=== PATIENT | male | born 1960 | race African-American/Black ===

== ENCOUNTER 2024-03-11 13:41 | Inpatient (IN) | payer OTHER ==
[2024-03-11] MEDS ORDERED: cloNIDine HCL 0.1 MG TAB ONE (14:41)
[2024-03-11 14:53] LABS: PT Prothrombin Time 11.5 SECONDS (9.4-12.5); Protime INR 1.03
[2024-03-11 15:04] LABS: Absolute Basophils 0.1 K/uL (0-0.5); Absolute Eosinophils 0.3 K/uL (0-0.5); Absolute Lymphocytes (CBC) 2.2 K/uL (0.7-4.9); Absolute Monocytes 0.6 K/uL (0.1-1.3); Absolute Neutrophil 2.5 K/uL (1.8-8.0); Basophils % 0.9 % (0-1.3); Hematocrit 44.3 % (39.6-49.0); Hemoglobin 14.4 g/dL (13.6-17.9); Lymphocytes % 38.8 % (15.3-44.8); MCH 29.5 pg (27.0-35.0); MCHC 32.5 g/dL (32.0-36.0); MCV 90.9 fL (80-100); MPV 8.2 fL (7.6-11.3); Monocytes % 11.3 % (3.3-12.3); Nucleated Red Blood Cells % 0.1 % (0-0); Platelets 188 thou/uL (152-406); RBC Red Blood Cell Count 4.87 M/uL (4.33-5.43); Red Cell Distribution Width 13.6 % (12.1-15.2)
--- NOTE | 2024-03-11 15:06 | RAD REPORT ---
EXAMINATION: ONE VIEW CHEST XR CLINICAL INDICATION: CHEST PAIN TECHNIQUE: Frontal chest projection is submitted. Examination is limited by patient positioning and t echnique. COMPARISON: No prior exam. FINDINGS: Ckhf-[id number] pulmonary edema is seen. Heart is moderately enlarged in size. No displaced fracture s identified. IMPRESSION: [id number] CHF suspected.
[2024-03-11 15:10] LABS: Troponin High Sensitivity 37.6 pg/mL (<58.9)
--- NOTE | 2024-03-11 16:17 | RAD REPORT ---
EXAMINATION: CTA CHEST CLINICAL INDICATION: CHEst pain, BP 174/123 TECHNIQUE: This examination was performed according to an angiographic protocol with 3D post-processi ng. This involves 3D reconstructions, MIPs, volume rendered images and/or shaded surface rendering. One or more of the following dose reduction techniques were used: Automated exposure control, adjustm ent of the mA and/or kV according to patient size, and/or iterative reconstruction. Unless otherwise specified, incidental findings do not require dedicated imaging follow-up. COMPARISON: No prior exam. FINDINGS: THORACIC AORTA: Normal caliber and configuration. PULMONARY ARTERIES: Normal caliber. No evidence of pulmonary emboli to the subsegmental level. LUNGS: No evidence of airspace or interstitial process. No nodules. PLEURA: No pleural effusion. No pneumothorax. MEDIASTINUM AND LYMPH NODES: No mediastinal mass or fluid collection. Normal size mediastinal, hilar, and axillary lymph nodes. OSSEOUS STRUCTURES AND CHEST WALL: Intact. UPPER ABDOMEN: Fatty liver. IMPRESSION: Unremarkable CTA of the chest.
--- NOTE | 2024-03-11 16:19 | RAD REPORT ---
EXAM: CTA of the abdomen and pelvis HISTORY: Chest pain and back pain pain COMPARISON: None TECHNIQUE: Multiple contiguous axial images were obtained a CTA of the abdomen and pelvis with contra st per angiographic protocol. This involves 3D reconstructions, MIPs, volume rendered images and/or shaded surface rendering. One or more of the following dose reduction techniques were used: Automated exposure control, adjustment of the mA and/or kV according to patient size, and/or iterative reconstruction. Unless otherwise specified, incidental findings do not require dedicated imaging foll ow-up. Sagittal and coronal 3-D MIP reformats were performed. FINDINGS: DESCENDING THORACIC AORTA: Included infeior aspect demonstrates normal caliber without evidence of d issection or aneurysmal dilatation. ABDOMINAL AORTA: Normal caliber without evidence of dissection or aneurysmal dilatation. Mild infrare nal atherosclerosis. CELIAC TRUNK: Patent. SMA: Patent SOPHIA: Patent RENAL ARTERIES: Bilateral single renal arteries without significant atherosclerotic disease. LIVER: Fatty liver infiltration noted. SPLEEN: Unremarkable. PANCREAS: Unremarkable. KIDNEYS: Unremarkable. ADRENALS: Unremarkable. BOWEL: Unremarkable. Normal appendix. RETROPERITONEUM: No lymphadenopathy. BONES: Mild lumbar degenerative changes. ADDITIONAL FINDINGS: IMPRESSION: No significant flow abnormality is detected.
--- NOTE | 2024-03-11 16:20 | RAD REPORT ---
EXAMINATION:Upper Ext Artery Uni Venkatesh CLINICAL INDICATION: Male, 63 years old. PAIN RIGHT TECHNIQUE: Arterial duplex ultrasound was performed of the right upper extremity with real-time, colo r-flow, and spectral wave Doppler evaluation. COMPARISON: No prior exam. FINDINGS: No plaque throughout the evaluated arterial system. Triphasic waveforms are seen throughout the evaluated right upper extremity arterial system. No signi ficant flow abnormality seen.. No other suspicious findings. IMPRESSION: No significant flow abnormality seen.
--- NOTE | 2024-03-11 16:21 | RAD REPORT ---
EXAMINATION: US RIGHT UPPER EXTREMITY VENOUS DOPPLER CLINICAL INDICATION: right arm pain RIGHT TECHNIQUE: Complete bilateral duplex sonography of the RIGHT upper extremity veins was performed. The examination included compression for vein patency, color Doppler imaging and flow augmentation in response to distal compression of the internal jugular, brachiocephalic, subclavian, axillary, brachi al, radial, ulnar, cephalic and basilic veins. COMPARISON: No prior exam. FINDINGS: Duplex sonography testing of the veins of the RIGHT upper extremity was performed. Color flow imaging shows all veins to be compressible with [id number] color filling. Pulsatile and phasic flow is present within all upper extremity deep and superficial veins examined. IMPRESSION: There is no deep vein or superficial vein thrombosis.
--- NOTE | 2024-03-11 16:38 | EDPHYS ---
Physician Documentation [facility] Name: Rony Gardner Age: 63 yrs Sex: Male : 1960 Arrival Date: 03/11/2024 Time: 13:41 Bed 6 Private MD: ED Physician Jarrod Parsons HPI: 03/11 14:26 This 63 yrs old Black Male presents to ER via EMS with complaints of High Blood rn Pressure. 14:26 The patient has elevated blood pressure and discovered this at home. Onset: The rn symptoms/episode began/occurred at an unknown time. Modifying factors:. Associated signs and symptoms: Pertinent positives: chest pain, Pertinent negatives: dizziness, headache. Severity of symptoms: At its worst the blood pressure was moderate, in the emergency department the blood pressure is unchanged. The patient has experienced similar episodes in the past. The patient has been recently seen by a physician:. Patient reports seen at [facility] emergency room today for chest pain and high blood pressure. States workup was negative and has results with him. Patient states was discharged after negative cardiac workup and followed up with primary care physician. PCP noted high blood pressure and told him to come to [place] emergency room for evaluation. Patient reports intermittent chest pain that radiates to both arms and back. States compliant with blood pressure medication and no recent changes. No abdominal pain. No focal neurological deficit.. Historical: - Allergies: 13:53 No Known Allergies; ss - Immunization history:: Adult Immunizations up to date. - Infectious Disease History:: Denies. - Family history:: not pertinent. - Hospitalizations: : No recent hospitalization is reported. - Social history:: Smoking status: Patient denies any tobacco usage or history of. ROS: 14:28 Constitutional: Negative for fever, chills, and weight loss, Cardiovascular: Positive rn for chest pain Respiratory: Negative for shortness of breath, cough, wheezing, and pleuritic chest pain, Abdomen/GI: Negative for abdominal pain, nausea, vomiting, diarrhea, and constipation, Back: Positive for mid back pain MS/Extremity: Positive for right arm pain Skin: Negative for injury, rash, and discoloration, Neuro: Negative for headache, weakness, numbness, tingling, and seizure, Exam: 14:28 Constitutional: This is a well developed, well nourished patient who is awake, alert, rn and in no acute distress. Head/Face: Normocephalic, atraumatic. Cardiovascular: Regular rate and rhythm. No pulse deficits. Respiratory: No increased work of breathing, no retractions or nasal flaring. Abdomen/GI: Soft, non-tender MS/ Extremity: No cyanosis. Right radial pulse slightly weaker compared to left radial pulse. No discoloration. Neuro: Awake and alert, GCS 15, oriented to person, place, time, and situation. 14:46 ECG was reviewed by the Attending Physician. rn Vital Signs: 13:52 BP 174 / 123; Pulse 64; Resp 18; Temp 97.8(TE); Pulse Ox 97% on R/A; Weight 181.44 kg; ss Height 6 ft. 2 in. ; 16:37 BP 154 / 99; Pulse 54; Pulse Ox 99% on R/A; ap3 17:48 BP 183 / 113; Pulse 51; Resp 17; Pulse Ox 99% ; bp 18:35 BP 171 / 68; Pulse 68; Resp 19; Pulse Ox 94% on R/A; bp 19:30 BP 134 / 68; Pulse 64; Resp 18; Pulse Ox 96% ; cp4 13:52 Body Mass Index 51.36 (181.44 kg, 187.96 cm) ss MDM: 13:49 Medical Screening Exam initiated rn 16:36 Differential diagnosis: hypertensive crisis, Malignant HTN, CHF, pulmonary edema. rn 16:36 Data reviewed: vital signs, nurses notes, lab test result(s), EKG, radiologic studies, rn plain films, and as a result, I will admit patient. Consideration of Admission/Observation Patient was admitted/placed on observation. Escalation of care including admission/observation considered. Counseling: I had a detailed discussion with the patient and/or guardian regarding the historical points, exam findings, and any diagnostic results supporting the discharge/admit diagnosis, lab results, radiology results, the need for further work-up and treatment in the hospital. Response to treatment: the patient's symptoms have mildly improved after treatment, and as a result, I will admit patient. 03/11 13:58 Order name: Basic Metabolic Panel; Complete Time: 15:42 rn 03/11 13:58 Order name: CBC with Diff; Complete Time: 15:42 rn 03/11 13:58 Order name: NT PRO-BNP; Complete Time: 15:42 rn 03/11 13:58 Order name: PT-INR; Complete Time: 15:42 rn 03/11 13:58 Order name: Troponin HS; Complete Time: 15:42 rn 03/11 17:01 Order name: Troponin High Sensitivity EDMS 03/11 17:26 Order name: Urinalysis w/ reflexes EDMS 03/11 17:28 Order name: Basic Metabolic Panel EDMS 03/11 17:28 Order name: Basic Metabolic Panel EDMS 03/11 17:28 Order name: Basic Metabolic Panel EDMS 03/11 17:28 Order name: CBC with Automated Diff EDMS 03/11 17:28 Order name: CBC with Automated Diff EDMS 03/11 17:28 Order name: CBC with Automated Diff EDMS 03/11 17:28 Order name: Lipid Profile EDMS 03/11 17:28 Order name: Lipid Profile EDMS 03/11 17:28 Order name: Magnesium EDMS 03/11 17:28 Order name: Magnesium EDMS 03/11 17:28 Order name: Magnesium EDMS 03/11 17:28 Order name: NT PRO-BNP EDMS 03/11 17:28 Order name: NT PRO-BNP EDMS 03/11 17:28 Order name: Troponin High Sensitivity EDMS 03/11 17:28 Order name: Troponin High Sensitivity EDMS 03/11 13:58 Order name: XRAY Chest (1 view); Complete Time: 15:42 rn 03/11 15:15 Order name: Upper Ext Artery Uni Venkatesh; Complete Time: 16:22 EDMS 03/11 15:16 Order name: UPPER EXTREMITY VENOUS UNILATE; Complete Time: 16:22 EDMS 03/11 15:49 Order name: Abdomen Angio; Complete Time: 16:22 EDMS 03/11 15:50 Order name: Chest Angio; Complete Time: 16:22 EDMS 03/11 17:29 Order name: Rest Stress Cardiac Imaging EDMS 03/11 17:34 Order name: Echo with Doppler EDMS 03/11 17:34 Order name: Echo with Doppler EDMS 03/11 13:58 Order name: EKG; Complete Time: 13:58 rn 03/11 17:24 Order name: CONS Physician Consult EDMS 03/11 17:28 Order name: EKG Electrocardiogram EDMS 03/11 17:28 Order name: EKG Electrocardiogram EDMS 03/11 17:28 Order name: EKG Electrocardiogram EDMS 03/11 13:58 Order name: Cardiac monitoring; Complete Time: 14:44 rn 03/11 13:58 Order name: EKG - Nurse/Tech; Complete Time: 14:46 rn 03/11 13:58 Order name: IV Saline Lock; Complete Time: 14:43 rn 03/11 13:58 Order name: Labs collected and sent; Complete Time: 14:43 rn 03/11 13:58 Order name: O2 Per Protocol; Complete Time: 14:43 rn 03/11 13:58 Order name: O2 Sat Monitoring; Complete Time: 14:43 rn EC:46 Rate is 59 beats/min. Rhythm is regular. QRS [place] is Normal. ME interval is normal. QRS rn interval is normal. QT interval is normal. No Q waves. T waves are Inverted in leads II, III, aVF, V5, V6. No ST changes noted. Clinical impression: Sinus bradycardia. Interpreted by me. Reviewed by me. Administered Medications: 14:44 Drug: cloNIDine PO 0.2 mg PO once Route: PO; bp 16:58 Follow up: Response: No adverse reaction bp 16:57 Drug: Furosemide IVP 40 mg IVP once; give over 2 minutes Route: IVP; Site: left bp antecubital; 18:36 Follow up: Response: No adverse reaction bp Disposition Summary: 03/11/24 16:38 Hospitalization Ordered Notes: Hospitalization Status: Inpatient Admission rn Provider: Adolfo Silveira rn Location: Telemetry/MedSurg (Inpatient) rn Condition: Stable rn Problem: new rn Symptoms: have improved rn Bed/Room Type: Standard rn Room Assignment: 402(03/11/24 18:25) em1 Diagnosis - Malignant Hypertension rn - Chest pain, unspecified rn - Acute pulmonary edema rn Forms: - Medication Reconciliation Form rn - SBAR form rn - Leadership Thank You Letter rn Signatures: Dispatcher [employer] EDMS Jarrod Parsons MD MD rn Martinez, Eric em1 Yesenia Elena RN RN Samuel Coleman RN RN Minoo Medley cp4 Corrections: (The following items were deleted from the chart) 13:58 13:58 BASIC METABOLIC PANEL+C.LAB.BRZ ordered. EDMS EDMS 13:58 13:58 CBC+H.LAB.BRZ ordered. EDMS EDMS 13:58 13:58 PROBNP+C.LAB.BRZ ordered. EDMS EDMS 13:58 13:58 PROTIME (+INR)+COAG.LAB.BRZ ordered. EDMS EDMS 13:58 13:58 Troponin High Sensitivity+C.LAB.BRZ ordered. EDMS EDMS 13:59 13:59 Angio Aorta For Dissection+CT.RAD.BRZ ordered. EDMS EDMS 14:28 14:28 Extremity Venous Uni Ltd+US.RAD.BRZ ordered. EDMS EDMS 14:28 14:28 Lower Extremity Artery Uni Ltd+US.RAD.BRZ ordered. EDMS EDMS 18:25 16:38 rn em1
--- NOTE | 2024-03-11 16:38 | ER ---
Nurse's Notes [facility] Name: Rony Gardner Age: 63 yrs Sex: Male : 1960 Arrival Date: 03/11/2024 Time: 13:41 Bed 6 Private MD: Diagnosis: Malignant Hypertension;Chest pain, unspecified;Acute pulmonary edema Presentation: 03/11 13:54 Chief complaint: Patient states: he is having right upper chest pain that started ap3 yesterday and is also on the right upper back.. patient rates his pain as a 9/10. patient was evaluated at another facility this morning and reports being discharged and followed up with primary care dr. Coronavirus screen: At this time, the client does not indicate any symptoms associated with coronavirus-19. Ebola Screen: No symptoms or risks identified at this time. Initial Sepsis Screen: Does the patient meet any 2 criteria?. Initial Sepsis Screen: Does the patient have a suspected source of infection? No. Patient's initial sepsis screen is negative. Risk Assessment: Do you want to hurt yourself or someone else? Patient reports no desire to harm self or others. Onset of symptoms was March 10, 2023. 13:54 Method Of Arrival: EMS: [facility] ap3 13:54 Acuity: GRETEL 2 ap3 Triage Assessment: 13:58 General: Appears in no apparent distress. Behavior is calm, cooperative, appropriate ap3 for age. Pain: Complains of pain in back and chest Pain currently is 9 out of 10 on a pain scale. Pain began 1 day ago. Neuro: Level of Consciousness is awake, alert, obeys commands, Oriented to person, place, time, situation, Appropriate for age. Cardiovascular: Reports chest pain, Patient's skin is warm and dry. Respiratory: Airway is patent Respiratory effort is even, unlabored, Respiratory pattern is regular, symmetrical. Historical: - Allergies: 13:53 No Known Allergies; ss - Immunization history:: Adult Immunizations up to date. - Infectious Disease History:: Denies. - Family history:: not pertinent. - Hospitalizations: : No recent hospitalization is reported. - Social history:: Smoking status: Patient denies any tobacco usage or history of. Screenin:00 [facility] ED Fall Risk Assessment (Adult) History of falling in the last 3 months, bp including since admission No falls in past 3 months (0 pts) Confusion or Disorientation No (0 pts) Intoxicated or Sedated No (0 pts) Impaired Gait No (0 pts) Mobility Assist Device Used No (0 pt) Altered Elimination No (0 pt) Score/Fall Risk Level 0 - 2 = Low Risk Oriented to surroundings. Abuse screen: Denies threats or abuse. Denies injuries from another. Nutritional screening: No deficits noted. Tuberculosis screening: No symptoms or risk factors identified. Assessment: 14:00 General: Appears in no apparent distress. obese, Behavior is cooperative, appropriate bp for age, anxious. 16:00 Reassessment: No changes from previously documented assessment. Patient is alert, bp oriented x 3, equal unlabored respirations, skin warm/dry/pink. 17:49 Reassessment: ADMIT IN PROCESS. bp 18:43 Reassessment: REPORT FAXED FOR RM 402. bp Vital Signs: 13:52 BP 174 / 123; Pulse 64; Resp 18; Temp 97.8(TE); Pulse Ox 97% on R/A; Weight 181.44 kg; ss Height 6 ft. 2 in. ; 16:37 BP 154 / 99; Pulse 54; Pulse Ox 99% on R/A; ap3 17:48 BP 183 / 113; Pulse 51; Resp 17; Pulse Ox 99% ; bp 18:35 BP 171 / 68; Pulse 68; Resp 19; Pulse Ox 94% on R/A; bp 19:30 BP 134 / 68; Pulse 64; Resp 18; Pulse Ox 96% ; cp4 13:52 Body Mass Index 51.36 (181.44 kg, 187.96 cm) ED Course: 13:47 Patient arrived in ED. em1 13:48 Jarrod Parsons MD is Attending Physician. rn 13:58 Triage completed. ap3 14:00 Arm band placed on. bp 14:00 Patient has correct armband on for positive identification. bp 14:32 Samuel Hallman, ANGIE is Primary Nurse. bp 14:43 Inserted saline lock: 20 gauge in left antecubital area, using aseptic technique. Blood ss collected. Flushed with 10 mL NS. 14:50 XRAY Chest (1 view) In Process Unspecified. EDMS 15:49 Abdomen Angio In Process Unspecified. EDMS 15:50 Chest Angio In Process Unspecified. EDMS 16:12 Upper Ext Artery Uni Vnekatesh In Process Unspecified. EDMS 16:12 UPPER EXTREMITY VENOUS UNILATE In Process Unspecified. EDMS 16:37 Adolfo Silveira MD is Hospitalizing Provider. rn 18:36 No provider procedures requiring assistance completed. Patient admitted, IV remains in bp place. 19:30 Provided Education on: admission. cp4 Administered Medications: 14:44 Drug: cloNIDine PO 0.2 mg PO once Route: PO; bp 16:58 Follow up: Response: No adverse reaction bp 16:57 Drug: Furosemide IVP 40 mg IVP once; give over 2 minutes Route: IVP; Site: left bp antecubital; 18:36 Follow up: Response: No adverse reaction bp Medication: 19:30 VIS not applicable for this client. cp4 Outcome: 16:38 Decision to Hospitalize by Provider. rn 19:30 Admitted to Med/surg accompanied by tech, via stretcher, with chart, cp4 19:30 Condition: stable 19:30 Instructed on the need for admit, 19:31 Patient left the ED. cp4 Signatures: Dispatcher [employer] EDMS Jarrod Parsons MD MD rn Rony Dow em1 Yesenia Elena RN RN ss Samuel Hallman RN RN bp Regina Meier RN RN ap3 Minoo Davis cp4 Corrections: (The following items were deleted from the chart) 14:43 13:52 Chief complaint: ss ss
[2024-03-11] MEDS ORDERED: FUROSEMIDE 40 MG/4 ML VIAL ONE (16:42)
--- NOTE | 2024-03-11 16:58 | P.HP ---
Certification for Inpatient Patient admitted to: Observation <Monica Melara - Last Filed: 03/11/24 19:22> Patient History Date of Service: 03/11/24 Reason for admission: Chest pain History of Present Illness: 63 year old male with past medical history of of unconrolled HTN, morbid obesity,pre diabetes, presents to ER after being seen at [facility] for chest pain. He reports being seen in ED and discharged. he reports having elevated bp being treated with clonidine. He reports chest pain is substernal radiates to right posterior shoulder. He reports being referred to ER by his primary care physician. He denies prior cardiac stress test, no reported history of NV, cardiac cath or stent placement. he reports "pre diabetes" takes several meds, but does not know the names. He denies shoulder injury, no fall or heavy lift ing. Plan to admit for Chest pain rule out NV, abnormal EKG, acute heart failure, with cardiology to consult ER evaluation BP on arrival to ED 174/123, BMI 51.36, EKG 59 beats/min. Rhythm is regular. QRS [place] is Normal. PA interval is normal. QRS interval is normal. QT interval is normal. No Q waves. T waves are Inverted in leads II, III, aVF, V5, V6. No ST changes noted. Clinical impression: Sinus bradycardia. CT abdomen CTA Mild infrarenal atherosclerosis, : Fatty liver infiltration noted. chest Unremarkable CTA of the chest., CXR [id number] CHF suspected. Doppler right upper extremity No significant flow abnormality seen. Lab BNP 262, Trop 37.6. - Past Medical/Surgical History -: uncontrolled HTN -: Morbid Obesity BMI 51 -: Pre diabetes Past Surgical History: Patient denies surgical history - Social History Smoking Status: Current every day smoker Alcohol use: No CD- Drugs: No Caffeine use: Yes Place of Residence: Home <Monica Melara - Last Filed: 03/11/24 19:22> Date of Service: 03/11/24 <Adolfo Silveira - Last Filed: 03/12/24 18:41> Review of Systems 10-point ROS is otherwise unremarkable <Monica Melara - Last Filed: 03/11/24 19:22> Physical Examination - Physical Exam General: Alert, In no apparent distress, Oriented x3, Obese HEENT: Atraumatic, Normocephalic Neck: Supple, 2+ carotid pulse no bruit, JVD not distended Respiratory: Normal air movement, Other (equal, unlabored) Cardiovascular: Normal pulses, Regular rate/rhythm, Normal S1 S2 Capillary refill: <2 Seconds Gastrointestinal: Normal bowel sounds, Soft and benign, Other (obese) Musculoskeletal: No swelling, No contractures Integumentary: No significant lesion, No tenderness/swelling Neurological: Normal speech, Normal strength at 5/5 x4 extr, Cranial nerves 3-12 intact - Studies Laboratory Data (last 24 hrs) 03/11/24 03/11/24 03/11/24 14:40 14:40 14:40 WBC 5.80 Hgb 14.4 Hct 44.3 Plt Count 188 PT 11.5 INR 1.03 Sodium 137 Potassium 4.0 BUN 9 Creatinine 0.99 Glucose 112 H <Monica Melara - Last Filed: 03/11/24 19:22> - Studies Laboratory Data (last 24 hrs) 03/12/24 03/12/24 06:13 06:13 WBC 5.20 Hgb 13.6 Hct 41.8 Plt Count 180 Sodium 139 Potassium 3.6 BUN 11 Creatinine 0.85 Glucose 118 H Phosphorus 3.4 Magnesium 2.2 Triglycerides 127 Cholesterol 233 H HDL Cholesterol 41 Cholesterol/HDL Ratio 5.68 <Adolfo Silveira - Last Filed: 03/12/24 18:41> Assessment and Plan - Problems (Diagnosis) (1) Chest pain, rule out acute myocardial infarction Current Visit: Yes Status: Acute (2) Acute heart failure Current Visit: Yes Status: Acute (3) Uncontrolled hypertension Current Visit: Yes Status: Acute (4) Abnormal finding on EKG Current Visit: Yes Status: Acute (5) Morbid obesity with BMI of 50.0-59.9, adult Current Visit: Yes Status: Acute (6) Prediabetes Current Visit: Yes Status: Acute (7) Vapes nicotine containing substance Current Visit: Yes Status: Acute - Plan Assessment Chest pain rule out NV cardiolgy consult EKG 59 beats/min. Rhythm is regular. QRS [place] is Normal. PA interval is normal. QRS interval is normal. QT interval is normal. No Q waves. T waves are Inverted in leads II, III, aVF, V5, V6. No ST changes noted. Clinical impression: Sinus bradycardia. Telemetry ECHO, N.p.o. after midnight stress test in am if serial trop neg trend BNP, Troponin Gentle diuretics, antihypertensive, antilipid, aspirin, nitro As needed analgesics, Educated on tobacco cessation Daily weight Full code DVT Lovenox Diet cardiac Disposition Home independent prior Discharge Plan: Home - Advance Directives Does patient have a Living Will: No Does patient have a Durable POA for Healthcare: No - Code Status/Comfort Care Code Status: Full Code Critical Care: No Time Spent Managing Pts Care (In Minutes): 55 <Monica Melara - Last Filed: 03/11/24 19:22> - Problems (Diagnosis) (1) Chest pain, rule out acute myocardial infarction Current Visit: Yes Status: Acute (2) Heart failure with preserved ejection fraction Current Visit: Yes Status: Acute (3) Morbid obesity with BMI of 50.0-59.9, adult Current Visit: Yes Status: Acute (4) Uncontrolled hypertension Current Visit: Yes Status: Acute <Adolfo Silveira - Last Filed: 03/12/24 18:41> Date of Service: 03/11/24 Patient was seen and examined. Events of the last 24 hours have been noted. Spoke with with ROSA regarding patient's clinical picture after evaluating and examining the patient independently. I performed a substantial part of the MDM during this patient's care today. I personally made or approved the documented management plan and acknowledge its risk of complications. I agree with the findings and documentation provided in the ROSA's notes. Patient is currently doing well. Patient's clinical symptoms continue to improve. Patient scheduled for cardiology consultation in AM. <Adolfo Silveira - Last Filed: 03/12/24 18:41>
[2024-03-11] MEDS ORDERED: ALPRAZOLAM 0.25 MG TABLET PO PRN (17:24)
[2024-03-11] MEDS ORDERED: ONDANSETRON 4 MG/2 ML VIAL IV PRN (17:24)
[2024-03-11] MEDS ORDERED: ACETAMINOPHEN 500 MG TAB PO PRN (17:24)
[2024-03-11] MEDS ORDERED: HYDROCODONE/APAP 7.5/325 MG TAB PO PRN (17:31)
[2024-03-11] MEDS ORDERED: CYCLOBENZAPRINE 10 MG TAB PO PRN (17:31)
[2024-03-11] MEDS ORDERED: METOPROLOL TAR 50 MG TAB PO SCH (18:00)
[2024-03-11] MEDS: METOPROLOL TAR 50 MG TAB ONE (20:04)
[2024-03-11] MEDS: ENOXAPARIN 40 MG/0.4 ML SQ SCH (20:14)
[2024-03-11] MEDS: FUROSEMIDE 40 MG/4 ML VIAL IV SCH (20:15)
[2024-03-11] MEDS: ATORVASTATIN 40 MG TAB PO SCH (20:16)
[2024-03-11] MEDS: METOPROLOL TAR 50 MG TAB PO ONE (20:16)
[2024-03-11 23:20] VITALS: BMI 51.3
[2024-03-12 07:21] LABS: Absolute Eosinophils 0.3 K/uL (0-0.5); Absolute Monocytes 0.6 K/uL (0.1-1.3); Absolute Neutrophil 2.3 K/uL (1.8-8.0); Basophils % 0.8 % (0-1.3); Eosinophils % 5.6 % (0-4.4); Hematocrit 41.8 % (39.6-49.0); Hemoglobin 13.6 g/dL (13.6-17.9); Lymphocytes % 39.1 % (15.3-44.8); MCH 29.4 pg (27.0-35.0); MCHC 32.4 g/dL (32.0-36.0); MCV 90.8 fL (80-100); MPV 8.6 fL (7.6-11.3); Monocytes % 10.9 % (3.3-12.3); Neutrophils % 43.6 % (41.7-73.7); Nucleated Red Blood Cells % 0.1 % (0-0); Platelets 180 thou/uL (152-406); RBC Red Blood Cell Count 4.61 M/uL (4.33-5.43); Red Cell Distribution Width 13.5 % (12.1-15.2)
[2024-03-12] MEDS ORDERED: FLU (Fluarix Triv) TS24-25(6MOS UP)/PF 45 MCG/0.5 ML Syringe IM ONE (07:30)
[2024-03-12 07:44] LABS: Anion Gap 8.6 mEq/L (5.0-15.0); Magnesium 2.2 mg/dL (1.6-2.4); Phosphorus 3.4 mg/dL (2.5-4.9); Potassium 3.6 mEq/L (3.5-5.1); Troponin High Sensitivity 23.8 pg/mL (<58.9)
[2024-03-12] MEDS ORDERED: PNEUMOCOCCAL VACCINE 0.5 ML IMVAC ONE (08:00)
[2024-03-12] MEDS: ASPIRIN 325 MG TAB PO SCH (09:43)
[2024-03-12] MEDS: MORPHINE 4 MG/ML SYR IV PRN (11:56)
[2024-03-12] MEDS: SPIRONOLACTONE 25 MG TABLET PO ONE (14:37)
[2024-03-12] MEDS: LOSARTAN POTASSIUM 50 MG TABLET PO ONE (14:38)
--- NOTE | 2024-03-12 15:28 | ECHO ---
HEIGHT: 6 ft 2 in WEIGHT: 400 lb 0 oz DATE OF STUDY: 03/12/[address]: Monica Melara LINUX ARCHITECTThanh 2-DIMENSIONAL: YES M.MODE: YES DOPPLER: YES COLOR FLOW: YES TDS: YES PORTABLE: YES DEFINITY: NO BUBBLE STUDY: NO DIAGNOSIS: CHEST PAIN, CONGESTIVE HEART FAILURE CARDIAC HISTORY: CATHERIZATION: NO SURGERY: NO PROSTHETIC VALVE: NO PACEMAKER: NO MEASUREMENTS (cm) DIASTOLIC (NORMALS) SYSTOLIC (NORMALS) IVSd 1.4 (0.6-1.2) LA Diam 2.8 (1.9-4.0) LVEF 55-60% LVIDd 5.6 (3.5-5.7) LVIDs 4.4 (2.0-3.5) %FS 21% LVPWd 1.4 (0.6-1.2) Ao Diam 3.2 (2.0-3.7) 2 DIMENSIONAL ASSESSMENT: RIGHT ATRIUM: NORMAL LEFT ATRIUM: NORMAL RIGHT VENTRICLE: NORMAL LEFT VENTRICLE: MILDLY DILATED TRICUSPID VALVE: TRACE TRICUSPID REGURGITATION MITRAL VALVE: NORMAL PULMONIC VALVE: NORMAL AORTIC VALVE: NORMAL PERICARDIAL EFFUSION: NONE AORTIC ROOT: NORMAL LEFT VENTRICULAR WALL MOTION: NORMAL. DOPPLER/COLOR FLOW: DIASTOLIC DYSFUNCTION. COMMENTS: 1. TECHNICALLY DIFFICULT STUDY DUE TO BODY HABITUS. 2. GROSSLY NORMAL LEFT VENTRICULAR SYSTOLIC FUNCTION. LEFT VENTRICULAR EJECTION FRACTION 55-60%. CANNOT ACCURATELY ASSESS WALL MOTION. 3. DIASTOLIC DYSFUNCTION. 4. MILD ELEVATED FILLING PRESSURE. RIGHT ATRIAL PRESSURE 5-10 mmHg. TECHNOLOGIST: JOVANI BARROS
--- NOTE | 2024-03-12 16:08 | P.CNS ---
Date of Consult: 03/12/24 Chief Complaint: Chest pain History of Present Illness: Patient is morbidly obese with PMH of HTN, presented with chest pain, right sided radiating to right shoulder, also report BP has been running high, denies palpitations, no syncope, report CHOI and SOB. Allergies No Known Allergies Allergy (Unverified 03/11/24 19:41) Home medications list reviewed: Yes Home Medications: Atorvastatin Calcium 40 mg PO BEDTIME 03/12/24 Baclofen 2 tab PO DAILY 03/12/24 Diclofenac Sodium [Voltaren] 2 tab PO DAILY 03/12/24 Semaglutide [Ozempic] 0.5 mg SQ SEECOM 03/12/24 - Past Medical/Surgical History Diabetic: No -: uncontrolled HTN -: Morbid Obesity BMI 51 -: Pre diabetes - Social History Alcohol use: No CD- Drugs: No Caffeine use: Yes Place of Residence: Home Review of Systems 10-point ROS is otherwise unremarkable Physical Examination Temp Pulse Resp BP Pulse Ox 97.6 F 65 18 175/83 H 94 03/12/24 15:56 03/12/24 15:56 03/12/24 15:56 03/12/24 15:56 03/12/24 15:56 General: Alert, In no apparent distress HEENT: Atraumatic, PERRLA, Mucous membr. moist/pink, EOMI, Sclerae nonicteric Neck: Supple, 2+ carotid pulse no bruit, No LAD, Without JVD or thyroid abnormality Respiratory: Clear to auscultation bilaterally, Normal air movement Cardiovascular: Regular rate/rhythm, Normal S1 S2 Gastrointestinal: Normal bowel sounds, No tenderness Musculoskeletal: No tenderness Integumentary: No rashes Neurological: Normal gait, Normal speech, Normal tone, Normal affect Lymphatics: No axilla or inguinal lymphadenopathy - Problems (1) Acute heart failure Current Visit: Yes Status: Acute Plan: Patient echo is technically difficult due to body habitus but roughly patient EF is normal with DD. continue IV diuresis with lasix continue to monitor input and output and electrolytes add Losartan 50 mg daily add Aldactone 25 mg daily please reconcile patient home medications. (2) Chest pain, rule out acute myocardial infarction Current Visit: Yes Status: Acute Plan: EKG is normal, atypical with negative cardiac enzymes outpatient stress test. (3) Uncontrolled hypertension Current Visit: Yes Status: Acute Plan: adjust medications as above, reconcile patient home medications.
[2024-03-12] MEDS ORDERED: ENOXAPARIN 40 MG/0.4 ML SQ SCH (17:00)
--- NOTE | 2024-03-12 18:40 | P.PN ---
Subjective Date of Service: 03/12/24 Chest pain mainly on the right side. Troponins been negative. Seen by cardiology and recommended continue with diuresing today. Anticipate discharge tomorrow. Blood pressure is improved. Will continue with strict blood pressure control and will continue with diuresing. Continue with antiplatelet therapy and statin therapy. Review of Systems 10-point ROS is otherwise unremarkable Physical Examination - Vital Signs Temperature: 97.6 F Blood Pressure: 145/76 Pulse: 66 Respirations: 18 Pulse Ox (%): 94 - Physical Exam General: Alert, In no apparent distress HEENT: Atraumatic, PERRLA, EOMI Neck: Supple, JVD not distended Respiratory: Clear to auscultation bilaterally, Normal air movement Cardiovascular: Regular rate/rhythm, Normal S1 S2 Gastrointestinal: Normal bowel sounds, No tenderness Musculoskeletal: No tenderness Integumentary: No rashes Neurological: Normal speech, Normal tone, Normal affect Lymphatics: No axilla or inguinal lymphadenopathy - Studies Laboratory Data (last 24 hrs) 03/12/24 03/12/24 06:13 06:13 WBC 5.20 Hgb 13.6 Hct 41.8 Plt Count 180 Sodium 139 Potassium 3.6 BUN 11 Creatinine 0.85 Glucose 118 H Phosphorus 3.4 Magnesium 2.2 Triglycerides 127 Cholesterol 233 H HDL Cholesterol 41 Cholesterol/HDL Ratio 5.68 Medications List Reviewed: Yes Assessment & Plan - Problems (Diagnosis) (1) Chest pain, rule out acute myocardial infarction Current Visit: Yes Status: Acute (2) Heart failure with preserved ejection fraction Current Visit: Yes Status: Acute (3) Morbid obesity with BMI of 50.0-59.9, adult Current Visit: Yes Status: Acute (4) Uncontrolled hypertension Current Visit: Yes Status: Acute - Plan -High-sensitivity troponin -Cardiology consultation appreciated -Echocardiogram reviewed and stress test outpt -Lipid profile ordered -Counselled regarding modifying risk for cardiac disease Discharge Plan: Home Plan to discharge in: Greater than 2 days - Advance Directives Does patient have a Living Will: No Does patient have a Durable POA for Healthcare: No - Code Status/Comfort Care Code Status: Full Code Critical Care: No Time Spent Managing PTS Care (In Minutes): 35
[2024-03-12] MEDS ORDERED: HYDROCODONE/APAP 10/325 TAB PO PRN (18:46)
[2024-03-12] MEDS: ATORVASTATIN 40 MG TAB PO SCH (20:45)
[2024-03-12] MEDS: HYDRALAZINE HCL 25 MG TABLET PO SCH (20:45)
[2024-03-12] MEDS: BACLOFEN 10 MG TAB PO ONE (20:45)
[2024-03-12] MEDS: SPIRONOLACTONE 25 MG TABLET PO SCH (20:46)
[2024-03-12] MEDS: LOSARTAN POTASSIUM 50 MG TABLET PO SCH (20:46)
[2024-03-13 00:15] LABS: Specific Gravity 1.008 (1.005-1.030); Sqamous Epithelial None Seen /HPF (None Seen); Urine Bacteria None Seen /HPF (<20); Urine Bilirubin NEGATIVE (Negative); Urine Blood Negative (Negative); Urine Clarity Clear (Clear); Urine Color Colorless (Yellow); Urine Culture Reflex Order NOT NEEDED; Urine Glucose NEGATIVE (Negative); Urine Ketones NEGATIVE (Negative); Urine Microscopic Reflex YN ORDER UMIC; Urine Nitrite NEGATIVE (Negative); Urine Protein NEGATIVE (Negative); Urine RBC <5 /HPF (None Seen); Urine Urobilinogen Normal (Normal); Urine WBC <5 /HPF (<5); Urine Yeast (Budding) Trace /HPF (None Seen)
[2024-03-13 04:38] VITALS: TEMP 98
[2024-03-13 06:35] LABS: Absolute Basophils 0.1 K/uL (0-0.5); Absolute Eosinophils 0.3 K/uL (0-0.5); Absolute Lymphocytes (CBC) 1.8 K/uL (0.7-4.9); Absolute Monocytes 0.6 K/uL (0.1-1.3); Absolute Neutrophil 2.4 K/uL (1.8-8.0); Eosinophils % 5.4 % (0-4.4); Hematocrit 44.1 % (39.6-49.0); Hemoglobin 14.3 g/dL (13.6-17.9); Lymphocytes % 35.5 % (15.3-44.8); MCH 29.4 pg (27.0-35.0); MCHC 32.5 g/dL (32.0-36.0); MCV 90.6 fL (80-100); MPV 8.5 fL (7.6-11.3); Monocytes % 11.1 % (3.3-12.3); Nucleated Red Blood Cells % 0.2 % (0-0); Platelets 174 thou/uL (152-406); RBC Red Blood Cell Count 4.87 M/uL (4.33-5.43)
[2024-03-13 06:48] LABS: Albumin/Globulin Ratio 0.7 (1.1-1.8); Anion Gap 8.7 mEq/L (5.0-15.0); Bilirubin Total 0.5 mg/dL (0.2-1.0); Globulin 4.6 g/dL (2.3-3.5); Magnesium 2.2 mg/dL (1.6-2.4); Potassium 3.7 mEq/L (3.5-5.1); Protein, Total 7.6 g/dL (6.4-8.2)
[2024-03-13] MEDS: POTASSIUM CL SA 10 MEQ TAB PO ONE (08:05)
[2024-03-13] MEDS: BACLOFEN 10 MG TAB PO SCH (08:06)
[2024-03-13] MEDS: HYDRALAZINE HCL 20 MG/ML VIAL IV PRN (08:48)
[2024-03-13] MEDS ORDERED: LOSARTAN POTASSIUM 50 MG TABLET PO SCH (09:00)
[2024-03-13] MEDS ORDERED: SPIRONOLACTONE 25 MG TABLET PO SCH (09:00)
[2024-03-13] MEDS: ALPRAZOLAM 0.25 MG TABLET PO ONE (10:43)
[2024-03-13] MEDS: METOPROLOL TARTRATE 5 MG/5 ML INJ IV STA (10:43)
[2024-03-13] MEDS ORDERED: LOSARTAN POTASSIUM 50 MG TABLET PO ONE (14:00)
[2024-03-13] MEDS ORDERED: SPIRONOLACTONE 25 MG TABLET PO ONE (14:00)
--- NOTE | 2024-03-15 10:55 | EKG ---
Test Date: 2024-03-11 Test Time: 14:44:53 Lathe Mechanic: GLORIA MEASUREMENT RESULTS: Intervals: Rate: 59 DC: 194 QRSD: 90 QT: 416 QTc: 411 [place]: P: 52 DC: 194 QRS: -9 T: -57 INTERPRETIVE STATEMENTS: Sinus bradycardia with marked sinus arrhythmia T wave abnormality, consider lateral ischemia Abnormal ECG No previous ECG available for comparison Electronically Signed On 03-15-24 10:51:17 PROCUREMENT OFFICER by Quinton Lynn
[2024-03-16 15:08] VITALS: BP 170/92
[2024-03-16 15:17] VITALS: O2SAT 96
== END 2024-03-13 12:29 | disposition home or self-care (01) | DRG 291 ==
LOC: ER 13:41 → ERHOLD 17:19 → 4TH 18:46 → OBSVTOIN 03-12 17:57
PROVIDERS: ADMIT Hospitalist; ATTEND Hospitalist
DX: I11.0 Hypertensive heart disease with heart failure (principal); I50.31 Acute diastolic (congestive) heart failure; Z68.43 Body mass index [BMI] 50.0-59.9, adult; E66.01 Morbid (severe) obesity due to excess calories; F17.200 Nicotine dependence, unspecified, uncomplicated; R73.03 Prediabetes; Z79.899 Other long term (current) drug therapy
CPT/HCPCS: 36415; 71045; 71275; 74175; 80048; 80053; 80061; 81001; 83036; 83735; 83880; 84100; 84484; 85025; 85610; 93005; 93306; 93931; 93971; 96374; 99285; G0378; J0360; J1650; J1940; Q9967

== ENCOUNTER 2024-04-11 10:20 | Inpatient (IN) | payer OTHER ==
[2024-04-11 10:44] LABS: Absolute Eosinophils 0.4 K/uL (0-0.5); Absolute Lymphocytes (CBC) 2.4 K/uL (0.7-4.9); Absolute Monocytes 0.7 K/uL (0.1-1.3); Absolute Neutrophil 2.7 K/uL (1.8-8.0); Basophils % 0.7 % (0-1.3); Eosinophils % 6.3 % (0-4.4); Hematocrit 40.6 % (39.6-49.0); Hemoglobin 13.1 g/dL (13.6-17.9); MCH 29.2 pg (27.0-35.0); MCHC 32.4 g/dL (32.0-36.0); MCV 90.2 fL (80-100); MPV 8.7 fL (7.6-11.3); Monocytes % 10.8 % (3.3-12.3); Neutrophils % 44.2 % (41.7-73.7); Nucleated Red Blood Cells % 0.2 % (0-0); Platelets 187 thou/uL (152-406); Red Cell Distribution Width 13.8 % (12.1-15.2)
[2024-04-11 10:50] LABS: PTT, Activated Partial Thromb 33.1 SECONDS (24.3-36.9); Protime INR 1.05
[2024-04-11 10:56] LABS: ALT/SGPT 16 U/L (16-61); Albumin 2.9 g/dL (3.4-5.0); Albumin/Globulin Ratio 0.6 (1.1-1.8); Alkaline Phosphatase 95 U/L (45-117); Anion Gap 8.7 mEq/L (5.0-15.0); BUN Blood Urea Nitrogen 17 mg/dL (7-18); Bicarbonate 26 mEq/L (21-32); Bilirubin Total 0.3 mg/dL (0.2-1.0); Globulin 4.7 g/dL (2.3-3.5); Glomerular Filtration Rate 81 ml/min (=/>90); Glucose Level 149 mg/dL (74-106); Lipase 55 U/L (13-75); Potassium 3.7 mEq/L (3.5-5.1); Protein, Total 7.6 g/dL (6.4-8.2); Sodium Level 140 mEq/L (136-145)
[2024-04-11 10:57] LABS: AST/SGOT < 10 U/L (15-37)
--- NOTE | 2024-04-11 11:41 | RAD REPORT ---
EXAMINATION: CT ABDOMEN AND PELVIS WITH CONTRAST CLINICAL INDICATION: rectal bleeding;Abd pain TECHNIQUE: CT abdomen and pelvis was performed, after the administration of IV contrast, [facility]. Axial, sagittal and coronal reconstructions were obtained. One or more of the following dose reduction techniques were used: Automated exposure control, adjustment of the mA and k V according to patient size, and iterative reconstruction. Unless otherwise specified, incidental findings do not require dedicated imaging follow-up. COMPARISON: 03/11/2024 FINDINGS: LOWER CHEST: The visualized lung bases are clear. Inferior esophagus appears patulous. LIVER: Mild fatty liver is present. No focal lesion or biliary dilatation is seen. Grossly unremark able gallbladder. SPLEEN: Normal size. No focal lesion. PANCREAS: No mass, ductal dilation, or yevgeniy-pancreatic fluid. ADRENALS: Normal; no mass. KIDNEYS: Normal size and contour. No hydronephrosis. GASTROINTESTINAL TRACT: No evidence of free air, significant intra-abdominal free fluid, bowel obstru ction or abscess. Moderate stool is retained throughout the colon. APPENDIX: Normal appendix. LYMPH NODES: No lymphadenopathy. MUSCULOSKELETAL: Moderate lower lumbar spondylosis. ADDITIONAL FINDINGS: None. IMPRESSION: No acute or concerning abnormalities seen in the abdomen or pelvis.
--- NOTE | 2024-04-11 11:52 | EDPHYS ---
Physician Documentation [facility] Name: Rony Gardner Age: 63 yrs Sex: Male : 1960 Arrival Date: 04/11/2024 Time: 10:20 Bed 5 Private MD: ED Physician Jarrod Parsons HPI: 04/11 10:26 This 63 yrs old Black Male presents to ER via EMS with complaints of Bloody Stools. rn 10:26 The patient presents to the emergency department with rectal bleeding, a moderate rn amount. Onset: The symptoms/episode began/occurred last night. Abdominal pain: described as achy, crampy, located in the left upper quadrant and left lower quadrant. Modifying factors: The symptoms are alleviated by nothing, the symptoms are aggravated by nothing. Severity of symptoms: At their worst the symptoms were moderate in the emergency department the symptoms are unchanged. The patient has not experienced similar symptoms in the past. Historical: - Allergies: 10:26 No Known Allergies; ph - PMHx: 10:26 Hypertensive disorder; ph - Immunization history:: Adult Immunizations unknown. - Infectious Disease History:: Denies. - Social history:: Smoking status: Patient denies any tobacco usage or history of. - Family history:: not pertinent. - Hospitalizations: : No recent hospitalization is reported. ROS: 10:26 Constitutional: Negative for fever, chills, and weight loss, Cardiovascular: Negative rn for chest pain, palpitations, and edema, Respiratory: Negative for shortness of breath, cough, wheezing, and pleuritic chest pain, Abdomen/GI: Positive for left-sided abdominal pain with loose stool and red blood Back: Negative for injury and pain, : Negative for injury, bleeding, discharge, and swelling, Exam: 10:26 Constitutional: This is a well developed, well nourished patient who is awake, alert, rn diaphoretic Head/Face: Normocephalic, atraumatic. Cardiovascular: Regular rate and rhythm. No pulse deficits. Respiratory: No increased work of breathing, no retractions or nasal flaring. Abdomen/GI: Soft, mild mid abdominal tenderness and left lower quadrant abdominal tenderness. No rebound or guarding. No masses MS/ Extremity: Pulses equal, no cyanosis. Neuro: Awake and alert, GCS 15 Vital Signs: 10:24 BP 147 / 103; Pulse 91; Resp 18; Pulse Ox 98% ; Weight 163.29 kg; Height 6 ft. 3 in. ; ph 11:22 BP 124 / 88; Pulse 82; Resp 18; Pulse Ox 98% on R/A; ph 12:00 BP 142 / 94; Pulse 86; Resp 18; Pulse Ox 99% on R/A; ph 13:53 BP 132 / 87; Pulse 79; Resp 18; Temp 97.9; Pulse Ox 98% on R/A; ph 10:24 Body Mass Index 45.00 (163.29 kg, 190.5 cm) ph MDM: 10:25 Medical Screening Exam initiated rn 11:49 Differential diagnosis: Diverticulitis, colitis, diverticulosis, lower GI bleed. Data rn reviewed: vital signs, nurses notes, lab test result(s), radiologic studies, CT scan, and as a result, I will admit patient. Consideration of Admission/Observation Patient was admitted/placed on observation. Escalation of care including admission/observation considered. Counseling: I had a detailed discussion with the patient and/or guardian regarding the historical points, exam findings, and any diagnostic results supporting the discharge/admit diagnosis, lab results, radiology results, the need for further work-up and treatment in the hospital. ED course: CT abdomen pelvis negative for acute findings and no signs of active bleed on imaging. Hemoglobin 13, patient has now had 6-7 episodes of bloody stool, diaphoresis, does not seem like it is stopping on its own. Will admit to hospitalist service as we have GI on-call, Dr. Meza. 04/11 10:25 Order name: CBC with Diff; Complete Time: 11: rn 04/11 10:25 Order name: CMP; Complete Time: 11: rn 04/11 10:25 Order name: Lipase; Complete Time: 11: rn 04/11 10:25 Order name: Protime (+inr); Complete Time: 11: rn 04/11 10:25 Order name: Ptt, Activated; Complete Time: 11: rn 04/11 13:36 Order name: Urinalysis w/ reflexes EDTN 04/11 13:36 Order name: Basic Metabolic Panel EDTN 04/11 13:36 Order name: Basic Metabolic Panel EDTN 04/11 13:36 Order name: Basic Metabolic Panel EDTN 04/11 13:36 Order name: Basic Metabolic Panel EDMS 04/11 13:36 Order name: Basic Metabolic Panel EDMS 04/11 13:36 Order name: Basic Metabolic Panel EDMS 04/11 13:36 Order name: Basic Metabolic Panel EDMS 04/11 13:36 Order name: Basic Metabolic Panel EDMS 04/11 13:36 Order name: CBC with Automated Diff EDMS 04/11 13:36 Order name: CBC with Automated Diff EDMS 04/11 13:36 Order name: CBC with Automated Diff EDMS 04/11 13:36 Order name: CBC with Automated Diff EDMS 04/11 13:36 Order name: CBC with Automated Diff EDMS 04/11 13:36 Order name: CBC with Automated Diff EDMS 04/11 13:36 Order name: CBC with Automated Diff EDMS 04/11 13:36 Order name: CBC with Automated Diff EDMS 04/11 13:36 Order name: Magnesium EDMS 04/11 13:36 Order name: Magnesium EDMS 04/11 13:36 Order name: Magnesium EDMS 04/11 13:36 Order name: Magnesium EDMS 04/11 13:36 Order name: Magnesium EDMS 04/11 13:36 Order name: Magnesium EDMS 04/11 13:36 Order name: Magnesium EDMS 04/11 13:36 Order name: Magnesium EDMS 04/11 13:36 Order name: Phosphorus EDMS 04/11 13:36 Order name: Phosphorus EDMS 04/11 13:36 Order name: Phosphorus EDMS 04/11 13:36 Order name: Phosphorus EDMS 04/11 13:36 Order name: Phosphorus EDMS 04/11 13:36 Order name: Phosphorus EDMS 04/11 13:36 Order name: Phosphorus EDMS 04/11 13:36 Order name: Phosphorus EDMS 04/11 13:45 Order name: Hematocrit EDMS 04/11 13:45 Order name: Hemoglobin EDMS 04/11 10:25 Order name: CT Abd/Pelvis - IV Contrast Only; Complete Time: 11:42 rn 04/11 13:36 Order name: CONS Physician Consult EDMS 04/11 10:25 Order name: IV Saline Lock; Complete Time: 10:47 rn 04/11 10:25 Order name: Labs collected and sent; Complete Time: 10:47 rn 04/11 10:25 Order name: Cardiac monitoring; Complete Time: 10:47 rn Administered Medications: No medications were administered Disposition Summary: 04/11/24 11:51 Hospitalization Ordered Notes: Hospitalization Status: Inpatient Admission rn Provider: Brian Pinto rn [facility]n Condition: Stable rn Problem: new rn Symptoms: are unchanged rn Bed/Room Type: Standard rn Room Assignment: 205(04/11/24 13:48) eb Diagnosis - GI Bleed/ Gastrointestinal hemorrhage, unspecified rn Forms: - Medication Reconciliation Form rn - SBAR form rn - Leadership Thank You Letter rn Signatures: Dispatcher [employer] Jarrod Coley MD MD rn Hall, Patricia, RN RN ph Botello, Elizabeth eb Corrections: (The following items were deleted from the chart) 13:48 11:51 rn eb
--- NOTE | 2024-04-11 11:52 | ER ---
Nurse's Notes [facility] Name: Rony Gardner Age: 63 yrs Sex: Male : 1960 Arrival Date: 04/11/2024 Time: 10:20 Bed 5 Private MD: Diagnosis: GI Bleed/ Gastrointestinal hemorrhage, unspecified Presentation: 04/11 10:24 Chief complaint: EMS states: Pt c/o bloody stools that started last night, also reports ph generalized abdominal pain, no N/V, pt hypertensive but did not take morning BP meds, pt diaphoretic upon arrival to ED. Coronavirus screen: Vaccine status: Patient reports being unvaccinated. Ebola Screen: No symptoms or risks identified at this time. Initial Sepsis Screen: Does the patient meet any 2 criteria? No. Patient's initial sepsis screen is negative. Does the patient have a suspected source of infection? No. Patient's initial sepsis screen is negative. Risk Assessment: Do you want to hurt yourself or someone else? Patient reports no desire to harm self or others. Onset of symptoms was April 11, 2024. 10:24 Method Of Arrival: EMS: [facility] 10:24 Acuity: GRETEL 3 ph Historical: - Allergies: 10:26 No Known Allergies; ph - PMHx: 10:26 Hypertensive disorder; ph - Immunization history:: Adult Immunizations unknown. - Infectious Disease History:: Denies. - Social history:: Smoking status: Patient denies any tobacco usage or history of. - Family history:: not pertinent. - Hospitalizations: : No recent hospitalization is reported. Screenin:01 [facility] ED Fall Risk Assessment (Adult) History of falling in the last 3 months, ph including since admission No falls in past 3 months (0 pts) Confusion or Disorientation No (0 pts) Intoxicated or Sedated No (0 pts) Impaired Gait No (0 pts) Mobility Assist Device Used No (0 pt) Altered Elimination No (0 pt) Score/Fall Risk Level 0 - 2 = Low Risk Oriented to surroundings, Maintained a safe environment, Hourly rounding (assess needs \T\ fall precautionary measures) done. Abuse screen: Denies threats or abuse. Denies injuries from another. Nutritional screening: No deficits noted. Tuberculosis screening: No symptoms or risk factors identified. Assessment: 11:00 General: Appears in no apparent distress. Behavior is calm, cooperative. Pain: ph Complains of pain in abdomen. Neuro: Level of Consciousness is awake, alert, obeys commands, Oriented to person, place, time, situation. Cardiovascular: Capillary refill < 3 seconds in bilateral fingers Patient's skin is warm and dry. Respiratory: Airway is patent Respiratory effort is even, unlabored, Respiratory pattern is regular, symmetrical. GI: Abdomen is round obese, Reports lower abdominal pain, diarrhea, rectal bleeding. Derm: Skin is pink, warm \T\ dry. Musculoskeletal: Circulation, motion, and sensation intact. Range of motion: intact in all extremities. Vital Signs: 10:24 BP 147 / 103; Pulse 91; Resp 18; Pulse Ox 98% ; Weight 163.29 kg; Height 6 ft. 3 in. ; ph 11:22 BP 124 / 88; Pulse 82; Resp 18; Pulse Ox 98% on R/A; ph 12:00 BP 142 / 94; Pulse 86; Resp 18; Pulse Ox 99% on R/A; ph 13:53 BP 132 / 87; Pulse 79; Resp 18; Temp 97.9; Pulse Ox 98% on R/A; ph 10:24 Body Mass Index 45.00 (163.29 kg, 190.5 cm) ph ED Course: 10:23 Patient arrived in ED. ph 10:25 Jarrod Parsons MD is Attending Physician. rn 10:26 Triage completed. ph 10:26 Arm band placed on Patient placed in an exam room, on a stretcher, on cardiac cath lab radiology technologist, ph on pulse oximetry. 10:59 Lisa Kong, ANGIE is Primary Nurse. ph 11:00 Initial lab(s) drawn, by ED staff, sent to lab. EKG done, by ED staff, reviewed by ph Jarrod Parsons MD. Maintain EMS IV. Dressing intact. Good blood return noted. Site clean \T\ dry. Gauge \T\ site: 20 lac. Flushed with 10 mL NS. 11:02 Patient has correct armband on for positive identification. Bed in low position. Call ph light in reach. Side rails up X 1. security monitor on. Pulse ox on. NIBP on. 11:36 CT Abd/Pelvis - IV Contrast Only In Process Unspecified. EDMS 11:51 Brian Pinto is Hospitalizing Provider. rn 13:51 No provider procedures requiring assistance completed. Patient admitted, IV remains in ph place. Administered Medications: No medications were administered Medication: 11:01 VIS not applicable for this client. ph Outcome: 11:51 Decision to Hospitalize by Provider. rn 14:42 Admitted to Med/surg accompanied by tech, via wheelchair, room 205, with chart, ph 14:42 Condition: good 14:42 Instructed on the need for admit, 14:43 Patient left the ED. ph Signatures: Dispatcher [employer] EDJarrod Bhatt MD MD rn Hall, Patricia, RN RN ph
--- NOTE | 2024-04-11 12:33 | P.HP ---
Certification for Inpatient Patient admitted to: Inpatient With expected LOS: >2 Midnights Patient will require the following post-hospital care: None Practitioner: I am a practitioner with admitting privileges, knowledge of patient current condition, hospital course, and medical plan of care. Services: Services provided to patient in accordance with Admission requirements found in Title 42 Section 412.3 of the Code of Federal Regulations Patient History Date of Service: 04/11/24 Reason for admission: GI bleed History of Present Illness: Rony Gardner is a 63 year old male with pmhx HTN who presents to the ED with C/O rectal bleeding/bloody stool for one week and abdominal cramping to Left upper and lower quadrant pain that began last night. He reports nausea vomiting, diaphoresis and shortness of breath this week. He reports no episode like this in the past. Laboratory evaluation H&H 13/40, eosinophils 6.[address] abdomen pelvis reports "No acute or concerning abnormalities seen in the abdomen or pelvis". Initial vitals BP 147 / 103; Pulse 91; Resp 18; Pulse Ox 98% CT Abd/pelvis reports "No acute or concerning abnormalities seen in the abdomen or pelvis." Rony will be admitted to the hospitalist service for further treatment of rectal bleeding, Dr. Meza consulted. Allergies No Known Allergies Allergy (Unverified 03/11/24 19:41) Home Medications: Baclofen 2 tab PO DAILY 03/12/24 Semaglutide [Ozempic] 0.5 mg SQ SEECOM 03/12/24 Hydralazine [Apresoline*] 25 mg PO TID #90 tab 03/13/24 Hydrocodone 10/APAP 325 [[place] 10/325*] 1 tab PO Q6H PRN #20 tab 03/13/24 carvediloL [Carvedilol] 6.25 mg PO BID 6AM 6PM #60 tab 03/13/24 Diclofenac Potassium 50 mg PO BID 04/11/24 Furosemide [Lasix] 40 mg PO DAILY 04/11/24 Losartan Potassium [Cozaar*] 50 mg PO DAILY 04/11/24 Spironolactone [Aldactone] 25 mg PO DAILY 04/11/24 - Past Medical/Surgical History Diabetic: No -: uncontrolled HTN -: Morbid Obesity BMI 51 -: Pre diabetes - Social History Alcohol use: No CD- Drugs: No Caffeine use: Yes Review of Systems Other: per HPI Physical Examination - Physical Exam General: Alert, In no apparent distress, Oriented x3 HEENT: Atraumatic, Normocephalic Neck: Supple, 2+ carotid pulse no bruit Respiratory: Clear to auscultation bilaterally, Normal air movement Cardiovascular: Normal pulses, Regular rate/rhythm, Normal S1 S2 Capillary refill: <2 Seconds Gastrointestinal: Soft and benign, Distended (Obese) Musculoskeletal: No clubbing Integumentary: No rashes Neurological: Normal speech, Normal tone - Studies Laboratory Data (last 24 hrs) 04/11/24 04/11/24 04/11/24 10:30 10:30 10:30 WBC 6.20 Hgb 13.1 L Hct 40.6 Plt Count 187 PT 11.0 INR 1.05 APTT 33.1 Sodium 140 Potassium 3.7 BUN 17 Creatinine 1.05 Glucose 149 H Total Bilirubin 0.3 AST < 10 L ALT 16 Alkaline Phosphatase 95 Lipase 55 Assessment and Plan - Plan Assessment and Plan Acute GI bleed Left upper/lower abdominal cramping - H/H stable, monitor tonight -Consult Dr. Meza, plan for colonoscopy in the AM -Bowel prep ordered -CLD till midnight then NPO -no red liquids -reports bloody stool intermittent for one week -lipase 55 Hypoglycemia -Serum glucose 149 -Monitor in a.m. with A1c HTN -continue home medications Substance abuse -tobacco dip -cessation education provided DVT ppx SCD full code LOS 2-3 days Discharge Plan: Home Plan to discharge in: 72 Hours - Advance Directives Does patient have a Living Will: No Does patient have a Durable POA for Healthcare: No
[2024-04-11] MEDS ORDERED: ACETAMINOPHEN 325 MG TABLET PO PRN (13:12)
[2024-04-11] MEDS ORDERED: METOCLOPRAMIDE 10 MG/2mL INJ IV PRN (13:37)
[2024-04-11] MEDS ORDERED: ONDANSETRON 4 MG/2 ML VIAL IV PRN (14:23)
[2024-04-11 15:24] VITALS: BMI 48.7
[2024-04-11] MEDS: HYDRALAZINE HCL 20 MG/ML VIAL IV PRN (16:01)
[2024-04-11] MEDS: MAGNESIUM CITRATE 300 ML BOT PO SCH (17:02)
[2024-04-11] MEDS: GOLYTELY 4000 ML PO SCH (20:03)
[2024-04-11 20:38] LABS: Hematocrit 37.9 % (39.6-49.0); Hemoglobin 12.7 g/dL (13.6-17.9)
[2024-04-11] MEDS ORDERED: HYDROCODONE/APAP 10/325 TAB PO PRN (20:40)
[2024-04-11] MEDS: DICLOFENAC POTASSIUM 50 MG PO SCH (21:00)
[2024-04-11] MEDS: HYDRALAZINE HCL 25 MG TABLET PO SCH (21:07)
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
[2024-04-12] MEDS: carvediloL 6.25 MG TAB PO SCH (04:38)
[2024-04-12 05:05] LABS: Absolute Basophils 0.1 K/uL (0-0.5); Absolute Eosinophils 0.3 K/uL (0-0.5); Absolute Lymphocytes (CBC) 2.1 K/uL (0.7-4.9); Absolute Monocytes 0.8 K/uL (0.1-1.3); Absolute Neutrophil 5.3 K/uL (1.8-8.0); Basophils % 0.6 % (0-1.3); Eosinophils % 3.2 % (0-4.4); Hematocrit 33.3 % (39.6-49.0); Hemoglobin 11.2 g/dL (13.6-17.9); Lymphocytes % 24.9 % (15.3-44.8); MCH 29.8 pg (27.0-35.0); MCHC 33.6 g/dL (32.0-36.0); MCV 88.5 fL (80-100); MPV 9.3 fL (7.6-11.3); Monocytes % 9.6 % (3.3-12.3); Neutrophils % 61.7 % (41.7-73.7); Nucleated Red Blood Cells % 0.1 % (0-0); Platelets 157 thou/uL (152-406); RBC Red Blood Cell Count 3.77 M/uL (4.33-5.43); Red Cell Distribution Width 13.8 % (12.1-15.2)
[2024-04-12 05:13] LABS: Anion Gap 7.5 mEq/L (5.0-15.0); Magnesium 2.1 mg/dL (1.6-2.4); Phosphorus 2.2 mg/dL (2.5-4.9); Potassium 3.5 mEq/L (3.5-5.1)
[2024-04-12] MEDS: LOSARTAN POTASSIUM 50 MG TABLET PO SCH (09:29)
[2024-04-12] MEDS: BACLOFEN 10 MG TAB PO SCH (09:29)
[2024-04-12] MEDS: SPIRONOLACTONE 25 MG TABLET PO SCH (09:30)
[2024-04-12] MEDS: POTASSIUM PHOS IN 0.9 % NACL 15 MMOL/250 ML BAG IV ONE (09:33)
[2024-04-12] MEDS: FUROSEMIDE 40 MG TABLET PO SCH (09:36)
[2024-04-12] MEDS: METOCLOPRAMIDE 10 MG/2mL INJ IV SCH (09:41)
[2024-04-12] MEDS: KCL 20 MEQ/100 mL IVPB 20 MEQ/100 ML BAG IV SCH (09:51)
[2024-04-12] MEDS ORDERED: GUAIFENESIN/CODEINE 5ML UCUP PO PRN (12:42)
[2024-04-12] MEDS ORDERED: ALBUTEROL 2.5 MG/3 ML NEB SOL NEB PRN (12:43)
[2024-04-12] MEDS: NA CHLORIDE 0.9% 500 ML ONE (13:00)
[2024-04-12] MEDS ORDERED: propofoL 200 MG/20 ML VIAL IV ONE (13:13)
[2024-04-12] MEDS ORDERED: LIDOCAINE 1% MPF 5 ML VIAL ONE (14:20)
[2024-04-12] MEDS ORDERED: GLUCAGON 1 MG/VIAL IM PRN (16:22)
[2024-04-12] MEDS ORDERED: D10W 125 ML IV PRN (16:22)
--- NOTE | 2024-04-12 16:22 | P.PN ---
Date of Service: 04/12/24 Subjective Awake, NPO, bowel prep complete Awaiting colonoscopy ROS 10 point ROS as noted above, otherwise negative Physical Exam General: Alert and Oriented x3, NAD HEENT: Atraumatic, Normocephalic Neck: Supple, 2+ carotid pulse no bruit Respiratory: Clear to auscultation bilaterally, Normal air movement, on RA Cardiovascular: Normal pulses, RRR, Normal S1 S2, no murmur appreciated Capillary refill: <2 Seconds Gastrointestinal: Soft and benign on palpation, Distended (Obese) Musculoskeletal: No clubbing Integumentary: No rashes Neurological: Normal speech, Normal tone Vitals Reviewed Problem list Acute GI bleed Left upper/lower abdominal cramping Hypoglycemia HTN Substance abuse Assessment and Plan Acute GI bleed Left upper/lower abdominal cramping -reports bloody stool intermittent for one week -H/H stable -Consult Dr. Meza, plan for colonoscopy today 04/12 -Bowel prep complete -NPO for procedure -lipase 55 Hypoglycemia -Serum glucose 139 -A1c 6.7 -Accucheck with SSI HTN -continue home medications Substance abuse -tobacco dip -cessation education provided DVT ppx SCD full code LOS 2-3 days Discharge Plan: Home Plan to discharge in: 72 Hours
[2024-04-12] MEDS: INSULIN REGULAR (HUMAN) 100 UNIT/ML SQ SCH (16:30)
[2024-04-12] MEDS ORDERED: DICLOFENAC POTASSIUM 50 MG PO SCH (21:00)
[2024-04-13 05:26] LABS: Absolute Eosinophils 0.3 K/uL (0-0.5); Absolute Lymphocytes (CBC) 2.3 K/uL (0.7-4.9); Absolute Monocytes 0.9 K/uL (0.1-1.3); Basophils % 0.5 % (0-1.3); Eosinophils % 4.3 % (0-4.4); Hemoglobin 10.3 g/dL (13.6-17.9); Lymphocytes % 30.8 % (15.3-44.8); MCH 29.8 pg (27.0-35.0); MCHC 33.1 g/dL (32.0-36.0); MCV 90.1 fL (80-100); MPV 8.7 fL (7.6-11.3); Monocytes % 11.2 % (3.3-12.3); Neutrophils % 53.2 % (41.7-73.7); Nucleated Red Blood Cells % 0.5 % (0-0); Platelets 161 thou/uL (152-406); RBC Red Blood Cell Count 3.44 M/uL (4.33-5.43)
[2024-04-13 05:49] LABS: Anion Gap 6.4 mEq/L (5.0-15.0); Magnesium 2.3 mg/dL (1.6-2.4); Phosphorus 3.1 mg/dL (2.5-4.9); Potassium 3.4 mEq/L (3.5-5.1)
[2024-04-13 07:42] LABS: Specific Gravity 1.017 (1.005-1.030); Sqamous Epithelial <5 /HPF (None Seen); Urine Bacteria None Seen /HPF (<20); Urine Bilirubin NEGATIVE (Negative); Urine Blood Negative (Negative); Urine Clarity Turbid (Clear); Urine Color Yellow (Yellow); Urine Culture Reflex Order NOT NEEDED; Urine Glucose NEGATIVE (Negative); Urine Ketones NEGATIVE (Negative); Urine Microscopic Reflex YN ORDER UMIC; Urine Nitrite NEGATIVE (Negative); Urine Protein NEGATIVE (Negative); Urine RBC None Seen /HPF (None Seen); Urine Urobilinogen Normal (Normal); Urine WBC <5 /HPF (<5)
[2024-04-13] MEDS: POTASSIUM CL SA 10 MEQ TAB PO ONE (09:45)
[2024-04-13 12:26] VITALS: O2SAT 97
--- NOTE | 2024-04-13 12:48 | EKG ---
Test Date: 2024-04-11 Test Time: 10:27:31 Slitter Creaser Slotter Helper: NANETTE MEASUREMENT RESULTS: Intervals: Rate: 86 [place]: 152 QRSD: 90 QT: 368 QTc: 440 [place]: P: 37 [place]: 152 QRS: -30 T: 92 INTERPRETIVE STATEMENTS: Normal sinus rhythm Left axis deviation Minimal voltage criteria for LVH, may be normal variant T wave abnormality, consider lateral ischemia Abnormal ECG Compared to ECG 03/11/2024 14:44:53 Left-axis deviation now present Left ventricular hypertrophy now present Sinus bradycardia no longer present Sinus arrhythmia no longer present T-wave abnormality still present Possible ischemia still present Electronically Signed On 04-13-24 12:43:30 CATHODE MAKER by Qiunton Lynn
--- NOTE | 2024-04-13 13:44 | P.DS ---
Admission Date: 04/11/24 Discharge Date: 04/13/24 Disposition: ROUTINE DISCHARGE Discharge Condition: GOOD Reason for Admission: GI bleed Brief History of Present Illness: Rony Gardner is a 63 year old male with pmhx HTN who presents to the ED with C/O rectal bleeding/bloody stool for one week and abdominal cramping to Left upper and lower quadrant pain that began last night. He reports nausea vomiting, diaphoresis and shortness of breath this week. He reports no episode like this in the past. Laboratory evaluation H&H 13/40, eosinophils 6.[address] abdomen pelvis reports "No acute or concerning abnormalities seen in the abdomen or pelvis". Initial vitals BP 147 / 103; Pulse 91; Resp 18; Pulse Ox 98% CT Abd/pelvis reports "No acute or concerning abnormalities seen in the abdomen or pelvis." Rony will be admitted to the hospitalist service for further treatment of rectal bleeding, Dr. Meza consulted. Hospital Course: Problem list Acute GI bleed Left upper/lower abdominal cramping Hypoglycemia HTN Substance abuse Patient was admitted to the hospital for bright red blood per rectum for 1 week. His initial hemoglobin was 13.1, today it is 10.3. He underwent colonoscopy on 04/12 showed colonic polyps, diverticulosis without perforation or abscess without bleeding. Internal hemorrhoids. He had multiple polypectomies during the procedure, it was noted that there were a few medium diverticula present in the ascending colon. The diverticula were not actively bleeding. Multiple medium sized uncomplicated internal hemorrhoids were also seen in the rectum. Bleeding was likely coming either from the internal hemorrhoids or possibly the ascending colon diverticula Patient had a soft brown stool overnight GI recommends await pathology results, follow-up appointment in the clinic Avoid NSAIDs for 2 weeks. Stop taking her diclofenac for 2 weeks A few Hydrocodone will be sent to your pharmacy Consider trying over the counter voltaren/diclofenac topical gel applied to your knees rather than the oral diclofenac after those 2 weeks or up as it is less likely to cause any complications or bleeding Take your other home medications as previously prescribed Call Dr. Meza's office to schedule appointment for follow-up Vital Signs/Physical Exam: Temp Pulse Resp BP Pulse Ox 97.7 F 65 20 150/93 H 98 04/13/24 08:00 04/13/24 09:47 04/13/24 08:00 04/13/24 09:47 04/13/24 08:00 General: Alert, In no apparent distress, Oriented x3 HEENT: Atraumatic, PERRLA Neck: Supple, JVD not distended Respiratory: Clear to auscultation bilaterally, Normal air movement Cardiovascular: Regular rate/rhythm, Normal S1 S2 Gastrointestinal: Normal bowel sounds, No tenderness Musculoskeletal: No tenderness Integumentary: No rashes Neurological: Normal speech, Normal affect Laboratory Data at Discharge: WBC 7.60 thou/uL (4.3-10.9) 04/13/24 04:50 Hgb 10.3 g/dL (13.6-17.9) L D 04/13/24 04:50 Hct 31.0 % (39.6-49.0) L 04/13/24 04:50 Plt Count 161 thou/uL (152-406) 04/13/24 04:50 PT 11.0 SECONDS (9.4-12.5) 04/11/24 10:30 INR 1.05 04/11/24 10:30 APTT 33.1 SECONDS (24.3-36.9) 04/11/24 10:30 Sodium 135 mEq/L (136-145) L 04/13/24 04:50 Potassium 3.4 mEq/L (3.5-5.1) L 04/13/24 04:50 BUN 10 mg/dL (7-18) 04/13/24 04:50 Creatinine 0.86 mg/dL (0.70-1.30) 04/13/24 04:50 Glucose 117 mg/dL (74-106) H 04/13/24 04:50 Phosphorus 3.1 mg/dL (2.5-4.9) 04/13/24 04:50 Magnesium 2.3 mg/dL (1.6-2.4) 04/13/24 04:50 Total Bilirubin 0.3 mg/dL (0.2-1.0) 04/11/24 10:30 AST < 10 U/L (15-37) L 04/11/24 10:30 ALT 16 U/L (16-61) 04/11/24 10:30 Alkaline Phosphatase 95 U/L (45-117) 04/11/24 10:30 Lipase 55 U/L (13-75) 04/11/24 10:30 Home Medications: Baclofen 2 tab PO DAILY 03/12/24 Semaglutide [Ozempic] 0.5 mg SQ SEECOM 03/12/24 Hydralazine [Apresoline*] 25 mg PO TID #90 tab 03/13/24 carvediloL [Carvedilol] 6.25 mg PO BID 6AM 6PM #60 tab 03/13/24 Diclofenac Potassium 50 mg PO BID 04/11/24 Furosemide [Lasix] 40 mg PO DAILY 04/11/24 Losartan Potassium [Cozaar*] 50 mg PO DAILY 04/11/24 Spironolactone [Aldactone] 25 mg PO DAILY 04/11/24 Hydrocodone 10/APAP 325 [[place] 10/325*] 1 tab PO Q8H PRN #10 tab 04/13/24 New Medications: Hydrocodone 10/APAP 325 [[place] 10/325*] 1 tab PO Q8H PRN #10 tab PRN Reason: Pain Scale 8-10 (Severe) Physician Discharge Instructions: Patient was admitted to the hospital for bright red blood per rectum for 1 week. His initial hemoglobin was 13.1, today it is 10.3. He underwent colonoscopy on 04/12 showed colonic polyps, diverticulosis without perforation or abscess without bleeding. Internal hemorrhoids. He had multiple polypectomies during the procedure, it was noted that there were a few medium diverticula present in the ascending colon. The diverticula were not actively bleeding. Multiple medium sized uncomplicated internal hemorrhoids were also seen in the rectum. Bleeding was likely coming either from the internal hemorrhoids or possibly the ascending colon diverticula Patient had a soft brown stool overnight GI recommends await pathology results, follow-up appointment in the clinic Avoid NSAIDs for 2 weeks. Stop taking her diclofenac for 2 weeks A few Hydrocodone will be sent to your pharmacy Consider trying over the counter voltaren/diclofenac topical gel applied to your knees rather than the oral diclofenac after those 2 weeks or up as it is less likely to cause any complications or bleeding Take your other home medications as previously prescribed Call Dr. Meza's office to schedule appointment for follow-up Diet: Regular Activity: Ad ck Followup: Usama Faria MD [Primary Care Provider] - 1-2 Weeks Garcia Meza MD [ASSOCIATE-ACTIVE - CAN ADMIT] - 1-2 Weeks Time spent managing pt's care (in minutes): 47
[2024-04-13 14:27] VITALS: BP 135/65; TEMP 98
== END 2024-04-13 15:37 | disposition home or self-care (01) | DRG 393 ==
LOC: ER 10:20 → ERHOLD 13:12 → 2ND 13:56
PROVIDERS: ADMIT Internal Medicine; ATTEND Hospitalist
PROC: 0DBN8ZZ Excision of Sigmoid Colon, Via Natural or Artificial Opening Endoscopic (ICD-10-PCS; 2024-04-12)
PROC: 0DBP8ZZ Excision of Rectum, Via Natural or Artificial Opening Endoscopic (ICD-10-PCS; 2024-04-12)
PROC: 0DBM8ZZ Excision of Descending Colon, Via Natural or Artificial Opening Endoscopic (ICD-10-PCS; 2024-04-12)
PROC: 0DBK8ZZ Excision of Ascending Colon, Via Natural or Artificial Opening Endoscopic (ICD-10-PCS; principal; 2024-04-12 13:00)
DX: K64.8 Other hemorrhoids (principal); K57.31 Diverticulosis of large intestine without perforation or abscess with bleeding; Z68.43 Body mass index [BMI] 50.0-59.9, adult; E66.01 Morbid (severe) obesity due to excess calories; K63.5 Polyp of colon; K62.1 Rectal polyp; I10 Essential (primary) hypertension; E16.2 Hypoglycemia, unspecified; F17.200 Nicotine dependence, unspecified, uncomplicated; K76.0 Fatty (change of) liver, not elsewhere classified; Z79.02 Long term (current) use of antithrombotics/antiplatelets; Z79.899 Other long term (current) drug therapy
CPT/HCPCS: 36415; 74177; 80048; 80053; 81001; 82947; 83036; 83690; 83735; 84100; 85014; 85018; 85025; 85610; 85730; 88305; 93005; 99285; J0360; J2003; J2704; J2765; J3480; J7040; Q9967